=== PATIENT | female | born 1985 | race Caucasian/White ===

== ENCOUNTER 2024-03-28 13:25 | Emergency (ER) | payer OTHER ==
[~2024-03-28] VITALS: Ht 175.3 cm; Wt 65.3 kg
[2024-03-28 14:37] VITALS: BP 126/69; TEMP 97.9
[2024-03-28] MEDS ORDERED: BACITRACIN ZINC OINT PACKET 1 EA PACKET TP ONE (14:55)
[2024-03-28] MEDS ORDERED: CLINDAMYCIN HCL 150 MG CAPSULE ONE (14:56)
[2024-03-28] MEDS: BACITRACIN ZINC OINT PACKET 1 EA PACKET TP ONE (15:05)
[2024-03-28] MEDS: CLINDAMYCIN HCL 150 MG CAPSULE PO ONE (15:05)
[2024-03-28 15:06] VITALS: O2SAT 99
== END 2024-03-28 15:07 | disposition home or self-care (01) ==
LOC: ER 13:25
DX: T63.301A Toxic effect of unspecified spider venom, accidental (unintentional), initial encounter (principal); L03.114 Cellulitis of left upper limb; Y92.89 Other specified places as the place of occurrence of the external cause